=== PATIENT | female | born 1995 | race Asian ===

== ENCOUNTER 2019-07-11 09:10 | Emergency (ER) | payer BC, OTHER ==
[2019-07-11 09:48] LABS: Pregnancy Test - Urine (BHCG) Negative (Negative); Pregu Control Background? CLEAR/WHITE (CLR/WHITE); Pregu Control Bar Appear? YES (CONTROL BAR); Specific Gravity 1.029 (1.002-1.036)
--- NOTE | 2019-07-11 10:28 | CT ---
CT lumbar spine noncontrast: DATE: 07/11/2019 HISTORY: 23-year-old female with acute low back pain due to injury. There are transitional levels at the thora columbar junction and lumbosacral junction. For the purposes of this report, the following, somewhat arbitrary designation of levels will be used: The lowest level with bilaterally fully formed ribs will be designated as T12. The level just caudal to that has a small left accessory ribs, and it will be designated as L1. The transitional level at the lumbosacral junction will be designated as L6. Left L6 transverse process is dysplastic lead enlarged and fused with the left S1 sacral ala. Vertebral body heights are maintained. Alignment is normal. No pars interarticularis defects. No lux r spondylolisthesis. No significant central spinal canal stenosis at any level. T12-L1: No significant additional findings L1-2: Normal L2-3: Essentially normal L3-4: Essentially normal L4-5: Mild to moderate disc space narrowing. Mild diffuse disc bulge indents the ventral aspect of th ecal sac without causing significant central spinal canal stenosis. Superimposed small focal central disc herniation with slight inferior migration of disc material. No high-grade neural foramin al stenosis. L5-6: Mild to-moderate disc space narrowing. Superimposed on diffuse disc bulge, there is a small to moderate-sized central disc herniation with mild inferior migration of extruded disc material indenting the ventral aspect of thecal sac. No significant central stenosis. Mild to moderate bilater al neural foraminal stenosis. L6 S1: Hypoplastic facet joints and hypoplastic disc space. No central or neural foraminal stenosis. No high-grade facet DJD at any level. IMPRESSION: 1. Lumbosacral transitional vertebra type III a 2. Central disc herniations at 2 levels in lower lumbar spine. 3. No significant central spinal canal stenosis at any level.
== END 2019-07-11 10:47 | disposition home or self-care (01) ==
LOC: ERS 09:10
DX: M51.36 Other intervertebral disc degeneration, lumbar region (principal)
CPT/HCPCS: 72131; 81025